=== PATIENT | female | born 2000 | race Caucasian/White ===

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

== ENCOUNTER 2021-05-23 16:58 | Emergency (ER) | payer OTHER ==
--- NOTE | 2021-05-23 19:06 | EDM.PDOC ---
ED HPI GENERAL MEDICAL PROBLEM - General Chief Complaint: Abdominal Pain Stated Complaint: ABDOMINAL PAIN/NAUSEA Time Seen by Provider: 05/23/21 17:18 Source of Information: Reports: Patient History Limitations: Reports: No Limitations - History of Present Illness INITIAL COMMENTS - FREE TEXT/NARRATIVE: 20-year-old female presents the emergency department complaints of lower ab dominal pain. Patient states this started last evening.. She describes it more in the suprapubic area. She states that she went to bed last evening and woke this morning and then did vomit once upon waking and still had the lower abdominal pain. She states she has still been able to eat or drink this afternoon. She has not taken anything for the discomfort. She states she had her Norplant removed approximately 2-1/2 weeks ago and was told that she should have a menstrual cycle starting within 2 weeks however she still has not. She states there is no chance that she could be . States she is otherwise healthy. Has not had a fever however states she did have some chills off and on throughout the day today. States her last bowel movement was this afternoon and it was normal. Does not have issues with constipation. She denies diarrhea. Lower Abdomen Pain Score (Numeric/FACES): 3 - Related Data Allergies Allergy/AdvReac Type Severity Reaction Status Date / Time No Known Allergies Allergy Verified 05/23/21 17:11 Home Meds: Home Meds . [No Known Home Meds] 05/23/21 [History] Past Medical History Neurological History: Reports: Seizure Psychiatric History: Reports: Anxiety, Panic Attack - Past Surgical History HEENT Surgical History: Reports: Oral Surgery Other HEENT Surgeries/Procedures: wisdom teeth extraction Social & Family History - Family History Family Medical History: No Pertinent Family History - Tobacco Use Tobacco Use Status *Q: Never Tobacco User Second Hand Smoke Exposure: No - Caffeine Use Caffeine Use: Reports: None - Recreational Drug Use Recreational Drug Use: No - Living Situation & Occupation Living situation: Reports: with Family Occupation: Student ED ROS GENERAL - Review of Systems Review Of Systems: Comprehensive ROS is negative, except as noted in HPI. ED EXAM, GI/ABD - Physical Exam Exam: See Below Exam Limited By: No Limitations General Appearance: Alert, WD/WN, No Apparent Distress Ears: Normal External Exam, Hearing Grossly Normal Nose: Normal Inspection Throat/Mouth: Normal Inspection, Normal Lips, Normal Voice, No Airway Compromise Head: Atraumatic, Normocephalic Neck: Normal Inspection, Supple Respiratory/Chest: No Respiratory Distress, Lungs Clear, Normal Breath Sounds, No Accessory Muscle Use, Chest Non-Tender Cardiovascular: Normal Peripheral Pulses, Regular Rate, Rhythm, No Edema, No Murmur GI/Abdominal Exam: Normal Bowel Sounds, Soft, Non-Tender, No Distention (Female) Exam: Deferred Rectal (Female) Exam: Deferred Back Exam: Normal Inspection Extremities: Normal Inspection Neurological: Alert, Oriented, Normal Cognition Psychiatric: Normal Affect, Normal Mood Skin Exam: Warm, Dry, Intact, Normal Color, No Rash Lymphatic: No Adenopathy Course - Vital Signs Text/Narrative:: 20-year-old female presents with lower abdominal pain that started last evening. States that she had her Norplant removed about 2-1/2 weeks ago and was told that she should start her menstrual cycle within the next couple of weeks. States she has not started this yet. Denies any fever however has had chills. States she woke up this morning and vomited x1. She is still been able to eat and drink however. I have ordered labs to include a CBC, CMP, C-reactive p rotein, urinalysis with micro and culture if indicated. Once I have a negative test back I will order a flatplate of the abdomen. Last Recorded V/S: Last Vital Signs Temp 98.6 F 05/23/21 17:07 Pulse 78 05/23/21 17:07 Resp 16 05/23/21 17:07 BP 131/93 H 05/23/21 17:07 Pulse Ox 99 05/23/21 17:07 - Orders/Labs/Meds Orders: Active Orders 24 hr Category Date Time Status KUB [Abdomen 1V Flat] [CR] Stat Exams 05/23/21 18:49 Taken Labs: Laboratory Tests 05/23/21 05/23/21 05/23/21 Range/Units 18:10 18:10 18:20 WBC 8.79 (3.98-10.04) K/mm3 RBC 4.28 (3.98-5.22) M/mm3 Hgb 12.3 (11.2-15.7) gm/dl Hct 38.4 (34.1-44.9) % MCV 89.7 (79.4-94.8) fl MCH 28.7 (25.6-32.2) pg MCHC 32.0 L (32.2-35.5) g/dl RDW Std Deviation 41.8 (36.4-46.3) fL Plt Count 265 (182-369) K/mm3 MPV 11.2 (9.4-12.3) fl Neut % (Auto) 68.0 (34.0-71.1) % Lymph % (Auto) 22.9 (19.3-51.7) % [place] % (Auto) 6.9 (4.7-12.5) % Eos % (Auto) 1.8 (0.7-5.8) Baso % (Auto) 0.3 (0.1-1.2) % Neut # (Auto) 5.97 (1.56-6.13) K/mm3 Lymph # (Auto) 2.01 (1.18-3.74) K/mm3 [place] # (Auto) 0.61 H (0.24-0.36) K/mm3 Eos # (Auto) 0.16 (0.04-0.36) K/mm3 Baso # (Auto) 0.03 (0.01-0.08) K/mm3 Sodium (136-145) mEq/L Potassium (3.5-5.1) mEq/L Chloride (98-107) mEq/L Carbon Dioxide (21-32) mEq/L Anion Gap (5-15) BUN (7-18) mg/dL Creatinine (0.55-1.02) mg/dL Est Cr Clr Drug Dosing mL/min Estimated GFR (MDRD) (>60) mL/min BUN/Creatinine Ratio (14-18) Glucose (70-99) mg/dL Calcium (8.5-10.1) mg/dL Total Bilirubin (0.2-1.0) mg/dL AST (15-37) U/L ALT (14-59) U/L Alkaline Phosphatase (46-116) U/L C-Reactive Protein (<1.0) mg/dL Total Protein (6.4-8.2) g/dl Albumin (3.4-5.0) g/dl Globulin gm/dL Albumin/Globulin Ratio (1-2) Urine Color Yellow (Yellow) Urine Appearance Clear (Clear) Urine pH 6.0 (5.0-8.0) Ur Specific [place] 1.025 (1.005-1.030) Urine Protein Negative (Negative) Urine Glucose (UA) Negative (Negative) Urine Ketones Negative (Negative) Urine Occult Blood Negative (Negative) Urine Nitrite Negative (Negative) Urine Bilirubin Negative (Negative) Urine Urobilinogen 2.0 H (0.2-1.0) Ur Leukocyte Esterase Negative (Negative) Urine HCG, Qual Negative (NEGATIVE) 05/23/21 Range/Units 18:20 WBC (3.98-10.04) K/mm3 RBC (3.98-5.22) M/mm3 Hgb (11.2-15.7) gm/dl Hct (34.1-44.9) % MCV (79.4-94.8) fl MCH (25.6-32.2) pg MCHC (32.2-35.5) g/dl RDW Std Deviation (36.4-46.3) fL Plt Count (182-369) K/mm3 MPV (9.4-12.3) fl Neut % (Auto) (34.0-71.1) % Lymph % (Auto) (19.3-51.7) % [place] % (Auto) (4.7-12.5) % Eos % (Auto) (0.7-5.8) Baso % (Auto) (0.1-1.2) % Neut # (Auto) (1.56-6.13) K/mm3 Lymph # (Auto) (1.18-3.74) K/mm3 [place] # (Auto) (0.24-0.36) K/mm3 Eos # (Auto) (0.04-0.36) K/mm3 Baso # (Auto) (0.01-0.08) K/mm3 Sodium 143 (136-145) mEq/L Potassium 4.1 (3.5-5.1) mEq/L Chloride 108 H (98-107) mEq/L Carbon Dioxide 27 (21-32) mEq/L Anion Gap 12.1 (5-15) BUN 14 (7-18) mg/dL Creatinine 0.7 (0.55-1.02) mg/dL Est Cr Clr Drug Dosing 125.70 mL/min Estimated GFR (MDRD) > 60 (>60) mL/min BUN/Creatinine Ratio 20.0 H (14-18) Glucose 99 (70-99) mg/dL Calcium 8.4 L (8.5-10.1) mg/dL Total Bilirubin 0.3 (0.2-1.0) mg/dL AST 19 (15-37) U/L ALT 34 (14-59) U/L Alkaline Phosphatase 71 (46-116) U/L C-Reactive Protein 2.2 H* (<1.0) mg/dL Total Protein 7.3 (6.4-8.2) g/dl Albumin 3.5 (3.4-5.0) g/dl Globulin 3.8 gm/dL Albumin/Globulin Ratio 0.9 L (1-2) Urine Color (Yellow) Urine Appearance (Clear) Urine pH (5.0-8.0) Ur Specific [place] (1.005-1.030) Urine Protein (Negative) Urine Glucose (UA) (Negative) Urine Ketones (Negative) Urine Occult Blood (Negative) Urine Nitrite (Negative) Urine Bilirubin (Negative) Urine Urobilinogen (0.2-1.0) Ur Leukocyte Esterase (Negative) Urine HCG, Qual (NEGATIVE) - Re-Assessments/Exams Free Text/Narrative Re-Assessment/Exam: 05/23/21 19:36 Hematology reveals a WBC of 8.79, hemoglobin 12.3, hematocrit 38.4, platelet count 265 Chemistry reveals a sodium of 143, potassium 4.1, chloride 108, anion gap 12.1, BUN 14, creatinine 0.7, glucose 99, total bilirubin 0.3, AST 19, ALT 34, alk phos 71, C-reactive protein 2.2 Urinalysis shows 2.0 urobilinogen, urine test is negative Appreciated on flatplate of the abdomen however there is a fair amount of stool noted in the rectal vault as well as the ascending and descending colon. Patient will be discharged home with recommendations that she drink one half bottle of magnesium citrate. If she has not had a bowel movement within 3 to 6 hours she is to drink the other half. If her symptoms do not improve after good bowel movement I recommend that she follow-up with Dr. Rausch. Departure - Departure Time of Disposition: 19:37 Disposition: Home, Self-Care 01 Condition: Good Clinical Impression: Abdominal pain Qualifiers: Abdominal location: lower abdomen, unspecified Qualified Code(s): R10.30 - Lower abdominal pain, unspecified - Discharge Information Instructions: Constipation, Adult, [id number], Abdominal Pain, Adult Referrals: PCP,Not In Area [Primary Care Provider] - Forms: ED Department Discharge Additional Instructions: You were seen in the emergency department with lower abdominal pain and vomiting x1 episode. Labs were completed which were all unremarkable. Urinalysis was also unremarkable. test was negative. X-ray of the abdomen did show a fair amount of stool. Recommend that you purchase a bottle of magnesium citrate. Drink half the bottle and if you have not had a bowel movement within 3 to 6 hours you may drink the other half the bottle. Should you continue to have lower abdominal pain after having a good bowel movement, recommend that you follow-up with Dr. Rausch in the clinic this week. Sepsis Event Note (ED) - Evaluation Sepsis Screening Result: No Definite Risk - Focused Exam Vital Signs: Vital Signs Temp Pulse Resp BP Pulse Ox 05/23/21 17:07 98.6 F 78 16 131/93 H 99 - My Orders Last 24 Hours: My Active Orders 05/23/21 18:49 KUB [Abdomen 1V Flat] [CR] Stat - Assessment/Plan Last 24 Hours: My Active Orders 05/23/21 18:49 KUB [Abdomen 1V Flat] [CR] Stat
--- NOTE | 2021-05-24 12:18 | CR ---
Abdomen: Supine view of the abdomen was obtained. Comparison: Prior abdominal x-ray of 10/20/18. Bowel gas pattern appears normal. No abnormal calcifications or soft tissue abnormality is appreciated. Bony structures appear within normal limits. Impression: 1. Nothing acute is seen on supine abdominal x-ray. Diagnostic code #1
== END 2021-05-23 19:45 | disposition home or self-care (01) ==
LOC: JD.ED 16:58
DX: R10.30 Lower abdominal pain, unspecified (principal)
CPT/HCPCS: 36415; 74018; 74018-26; 80053; 81003; 81025; 85025; 86140; 99283; 99284-25